=== PATIENT | male | born 1980 | race Hispanic/Latino ===

== ENCOUNTER → 2019-02-22 | Outpatient (CLI) | payer OTHER | END | disposition home or self-care (01) | LOC: RAH 09:36 | PROVIDERS: ATTEND Internal Medicine | DX: R94.5 Abnormal results of liver function studies (principal); R73.01 Impaired fasting glucose | CPT/HCPCS: 76705 ==

== ENCOUNTER → 2019-09-20 | Outpatient (CLI) | payer OTHER ==
[2019-09-20 08:06] LABS: BILIRUBIN,TOTAL 0.6 mg/dL (0.2-1.0); POTASSIUM 3.8 mmol/L (3.5-5.1); TOTAL PROTEIN, SERUM 7.6 g/dL (6.0-8.3)
== END | disposition home or self-care (01) ==
LOC: LAB 07:23
PROVIDERS: ATTEND Internal Medicine
DX: E78.2 Mixed hyperlipidemia (principal); R73.01 Impaired fasting glucose
CPT/HCPCS: 36415; 80053; 80061

== ENCOUNTER → 2020-05-14 | Outpatient (CLI) | payer OTHER ==
[2020-05-14 14:12] LABS: ALBUMIN 4.2 g/dL (3.5-5.0); BILIRUBIN,TOTAL 0.4 mg/dL (0.2-1.0); CREATININE 0.9 mg/dL (0.5-1.5); POTASSIUM 3.9 mmol/L (3.5-5.1); TOTAL PROTEIN, SERUM 7.3 g/dL (6.0-8.3)
[2020-05-14 14:13] LABS: BASOPHILS % (AUTO) 0.5 % (0.0-5.0); EOSINOPHILS % (AUTO) 9.3 % (0.0-8.0); HEMATOCRIT 43.8 % (42-54); LYMPHOCYTES % (AUTO) 31.9 % (21.0-51.0); MEAN CORPUSCULAR HEMOGLOBIN 29.4 pg (27.0-33.0); MEAN CORPUSCULAR HGB CONC 33.3 g/dL (32.0-36.0); MEAN CORPUSCULAR VOLUME 88.3 fL (79-99); NEUTROPHILS % (AUTO) 52.1 % (40.0-77.0); PLATELET COUNT (AUTO) 194 K/uL (130-400); RED BLOOD CELL COUNT(AUTO) 4.96 MIL/uL (4.50-6.20); RED CELL DISTRIBUTION WIDTH 12.7 % (11.0-15.5); WHITE BLOOD COUNT (AUTO) 5.6 K/uL (4.8-10.8)
== END | disposition home or self-care (01) ==
LOC: LAB 14:05
PROVIDERS: ATTEND Internal Medicine
DX: K21.9 Gastro-esophageal reflux disease without esophagitis (principal); E78.2 Mixed hyperlipidemia; R94.5 Abnormal results of liver function studies
CPT/HCPCS: 36415; 80053; 80061; 85025; 87338

== ENCOUNTER → 2020-12-01 | Outpatient (CLI) | payer OTHER ==
[2020-12-01 08:53] LABS: BASOPHILS % (AUTO) 0.4 % (0.0-5.0); EOSINOPHILS % (AUTO) 6.3 % (0.0-8.0); LYMPHOCYTES % (AUTO) 31.5 % (21.0-51.0); MEAN CORPUSCULAR HEMOGLOBIN 29.3 pg (27.0-33.0); MEAN CORPUSCULAR HGB CONC 33.8 g/dL (32.0-36.0); MEAN CORPUSCULAR VOLUME 86.9 fL (79-99); MONOCYTES % (AUTO) 7.2 % (3.0-13.0); NEUTROPHILS % (AUTO) 54.4 % (40.0-77.0); PLATELET COUNT (AUTO) 203 K/uL (130-400); RED BLOOD CELL COUNT(AUTO) 5.18 MIL/uL (4.50-6.20); RED CELL DISTRIBUTION WIDTH 12.4 % (11.0-15.5); WHITE BLOOD COUNT (AUTO) 5.4 K/uL (4.8-10.8)
[2020-12-01 08:54] LABS: ALBUMIN 4.1 g/dL (3.5-5.0); BILIRUBIN,TOTAL 0.4 mg/dL (0.2-1.0); CREATININE 1.1 mg/dL (0.5-1.5); POTASSIUM 3.7 mmol/L (3.5-5.1); TOTAL PROTEIN, SERUM 7.5 g/dL (6.0-8.3)
== END | disposition home or self-care (01) ==
LOC: LAB 07:50
PROVIDERS: ATTEND Internal Medicine
DX: R94.5 Abnormal results of liver function studies (principal); E88.81 Metabolic syndrome and other insulin resistance; E78.2 Mixed hyperlipidemia
CPT/HCPCS: 36415; 80053; 80061; 85025; 87338

== ENCOUNTER → 2021-06-25 | Outpatient (CLI) | payer OTHER ==
[2021-06-25 13:25] LABS: ALBUMIN 4.1 g/dL (3.5-5.0); BILIRUBIN,TOTAL 0.5 mg/dL (0.2-1.0); CREATININE 1.1 mg/dL (0.5-1.5); POTASSIUM 4.1 mmol/L (3.5-5.1); TOTAL PROTEIN, SERUM 7.6 g/dL (6.0-8.3)
[2021-06-25 13:27] LABS: HEMOGLOBIN A1C 5.5 % (4.0-6.0)
[2021-06-25 13:28] LABS: BASOPHILS % (AUTO) 0.4 % (0.0-5.0); EOSINOPHILS % (AUTO) 3.6 % (0.0-8.0); HEMATOCRIT 44.3 % (42-54); LYMPHOCYTES % (AUTO) 33.4 % (21.0-51.0); MEAN CORPUSCULAR HEMOGLOBIN 29.7 pg (27.0-33.0); MEAN CORPUSCULAR HGB CONC 34.1 g/dL (32.0-36.0); MONOCYTES % (AUTO) 7.9 % (3.0-13.0); NEUTROPHILS % (AUTO) 54.5 % (40.0-77.0); PLATELET COUNT (AUTO) 201 K/uL (130-400); RED BLOOD CELL COUNT(AUTO) 5.09 MIL/uL (4.50-6.20); RED CELL DISTRIBUTION WIDTH 12.4 % (11.0-15.5); WHITE BLOOD COUNT (AUTO) 4.9 K/uL (4.8-10.8)
== END | disposition home or self-care (01) ==
LOC: LAB 13:02
PROVIDERS: ATTEND Internal Medicine
DX: E88.81 Metabolic syndrome and other insulin resistance (principal); E78.2 Mixed hyperlipidemia; Z00.00 Encounter for general adult medical examination without abnormal findings
CPT/HCPCS: 36415; 80053; 80061; 83036; 85025

== ENCOUNTER → 2022-07-21 | Outpatient (CLI) | payer OTHER ==
[2022-07-21 08:52] LABS: BASOPHILS % (AUTO) 0.4 % (0.0-5.0); HEMATOCRIT 46.3 % (42-54); LYMPHOCYTES % (AUTO) 34.6 % (21.0-51.0); MEAN CORPUSCULAR HEMOGLOBIN 29.4 pg (27.0-33.0); MEAN CORPUSCULAR HGB CONC 34.6 g/dL (32.0-36.0); MONOCYTES % (AUTO) 6.4 % (3.0-13.0); NEUTROPHILS % (AUTO) 53.4 % (40.0-77.0); PLATELET COUNT (AUTO) 208 K/uL (130-400); RED BLOOD CELL COUNT(AUTO) 5.45 MIL/uL (4.50-6.20); RED CELL DISTRIBUTION WIDTH 12.8 % (11.0-15.5); WHITE BLOOD COUNT (AUTO) 5.6 K/uL (4.8-10.8)
[2022-07-21 08:55] LABS: ALBUMIN 4.2 g/dL (3.5-5.0); CREATININE 1.1 mg/dL (0.5-1.5); HEMOGLOBIN A1C 5.8 % (4.0-6.0); POTASSIUM 3.8 mmol/L (3.5-5.1); TOTAL PROTEIN, SERUM 7.8 g/dL (6.0-8.3)
== END | disposition home or self-care (01) ==
LOC: LAB 08:09
PROVIDERS: ATTEND Internal Medicine
DX: R94.5 Abnormal results of liver function studies (principal); R53.83 Other fatigue; E78.2 Mixed hyperlipidemia
CPT/HCPCS: 36415; 80053; 80061; 82306; 83036; 85025

== ENCOUNTER → 2023-02-08 | Outpatient (CLI) | payer OTHER ==
[2023-02-08 09:02] LABS: BASOPHILS % (AUTO) 0.5 % (0.0-5.0); HEMATOCRIT 45.1 % (42-54); LYMPHOCYTES % (AUTO) 32.6 % (21.0-51.0); MEAN CORPUSCULAR HEMOGLOBIN 29.5 pg (27.0-33.0); MEAN CORPUSCULAR HGB CONC 34.6 g/dL (32.0-36.0); MEAN CORPUSCULAR VOLUME 85.4 fL (79-99); MONOCYTES % (AUTO) 7.4 % (3.0-13.0); NEUTROPHILS % (AUTO) 54.3 % (40.0-77.0); PLATELET COUNT (AUTO) 188 K/uL (130-400); RED BLOOD CELL COUNT(AUTO) 5.28 MIL/uL (4.50-6.20); RED CELL DISTRIBUTION WIDTH 12.6 % (11.0-15.5); WHITE BLOOD COUNT (AUTO) 5.8 K/uL (4.8-10.8)
[2023-02-08 09:04] LABS: ALBUMIN 4.2 g/dL (3.5-5.0); CREATININE 1.2 mg/dL (0.5-1.5); POTASSIUM 4.1 mmol/L (3.5-5.1); TOTAL PROTEIN, SERUM 7.4 g/dL (6.0-8.3)
[2023-02-08 09:05] LABS: HEMOGLOBIN A1C 5.6 % (4.0-6.0)
== END | disposition home or self-care (01) ==
LOC: LAB 08:37
PROVIDERS: ATTEND Internal Medicine
DX: K21.9 Gastro-esophageal reflux disease without esophagitis (principal); E78.2 Mixed hyperlipidemia; R73.01 Impaired fasting glucose
CPT/HCPCS: 36415; 80053; 80061; 82043; 83036; 85025

== ENCOUNTER → 2023-04-20 | Outpatient (CLI) | payer OTHER ==
[2023-04-20 09:01] LABS: ALBUMIN 4.3 g/dL (3.5-5.0); CREATININE 1.1 mg/dL (0.5-1.5); POTASSIUM 3.9 mmol/L (3.5-5.1); TOTAL PROTEIN, SERUM 7.6 g/dL (6.0-8.3)
[2023-04-20 09:02] LABS: BASOPHILS % (AUTO) 0.8 % (0.0-5.0); EOSINOPHILS % (AUTO) 3.9 % (0.0-8.0); HEMATOCRIT 43.4 % (42-54); LYMPHOCYTES % (AUTO) 36.4 % (21.0-51.0); MEAN CORPUSCULAR HEMOGLOBIN 29.3 pg (27.0-33.0); MEAN CORPUSCULAR HGB CONC 33.6 g/dL (32.0-36.0); MEAN CORPUSCULAR VOLUME 87.1 fL (79-99); MONOCYTES % (AUTO) 6.7 % (3.0-13.0); PLATELET COUNT (AUTO) 185 K/uL (130-400); RED BLOOD CELL COUNT(AUTO) 4.98 MIL/uL (4.50-6.20); RED CELL DISTRIBUTION WIDTH 12.5 % (11.0-15.5); WHITE BLOOD COUNT (AUTO) 5.1 K/uL (4.8-10.8)
[2023-04-20 09:03] LABS: HEMOGLOBIN A1C 5.5 % (4.0-6.0)
[2023-04-20 09:27] LABS: THYROID STIMULATING HORMONE 2.95 uIU/mL (0.36-3.74)
== END | disposition home or self-care (01) ==
LOC: LAB 08:30
PROVIDERS: ATTEND Internal Medicine
DX: Z13.220 Encounter for screening for lipoid disorders (principal); Z13.1 Encounter for screening for diabetes mellitus; Z13.29 Encounter for screening for other suspected endocrine disorder
CPT/HCPCS: 36415; 80053; 80061; 83036; 84439; 84443; 85025

== ENCOUNTER 2023-05-19 09:47 | Day surgery (SDC) | payer OTHER ==
[2023-05-18 12:09] VITALS: BP 108/60
[~2023-05-19] VITALS: Ht 165.1 cm; Wt 73.8 kg
[~2023-05-19 09:47] MED LIST: ROSU10TA28 PO
[2023-05-19 10:00] VITALS: BP 115/75
[2023-05-19] MEDS ORDERED: PROPOFOL 10 MG/ML 20ML VIAL IV ONE ×2 (13:43→14:29)
== END 2023-05-19 15:25 | disposition home or self-care (01) ==
LOC: ENDO 09:47 → DAH 09:47 → ENDO 15:25
PROVIDERS: ATTEND Internal Medicine Gastroenterology
DX: K62.5 Hemorrhage of anus and rectum (principal); D12.2 Benign neoplasm of ascending colon; K29.50 Unspecified chronic gastritis without bleeding; K31.89 Other diseases of stomach and duodenum; K64.8 Other hemorrhoids; K20.80 Other esophagitis without bleeding; E78.2 Mixed hyperlipidemia; Z79.899 Other long term (current) drug therapy; Z72.89 Other problems related to lifestyle; Z20.822 Contact with and (suspected) exposure to COVID-19
CPT/HCPCS: 87426; 43239; 45385; J2704 ×2; A4620; A4215 ×2; A4223; A4657 ×2; A7002; A4222; A4221; A4663; J7030; A4606

== ENCOUNTER → 2023-09-02 | Outpatient (CLI) | payer OTHER ==
[2023-09-02 08:57] LABS: CHOLESTEROL 214 mg/dL (<200); HDL CHOLESTEROL 55 mg/dL (29-71); LDL DIRECT 129 mg/dL (0-99); TRIGLYCERIDES 147 mg/dL (30-200)
== END | disposition home or self-care (01) ==
LOC: LAB 08:23
PROVIDERS: ATTEND Internal Medicine
DX: E78.2 Mixed hyperlipidemia (principal)
CPT/HCPCS: 36415; 80061

== ENCOUNTER → 2024-09-03 | Outpatient (CLI) | payer OTHER ==
[~2024-09-03] MED LIST changes: -ROSU10TA28 PO; +ROSU10TA72 PO
[2024-09-03 10:28] LABS: ALBUMIN 3.8 g/dL (3.5-5.0); BILIRUBIN,TOTAL 0.4 mg/dL (0.2-1.0); POTASSIUM 4.1 mmol/L (3.5-5.1); THYROID STIMULATING HORMONE 2.31 uIU/mL (0.36-3.74); TOTAL PROTEIN, SERUM 7.2 g/dL (6.0-8.3)
[2024-09-03 10:29] LABS: BASOPHILS # (AUTO) 0.03 K/uL (0.00-0.20); BASOPHILS % (AUTO) 0.6 % (0.0-5.0); EOSINOPHILS # (AUTO) 0.37 K/uL (0.00-0.70); EOSINOPHILS % (AUTO) 7.7 % (0.0-8.0); HEMATOCRIT 43.6 % (42-54); HEMOGLOBIN A1C 5.6 % (4.0-6.0); IMMATURE GRANULOCYTE ABSOLUTE 0.02 K/uL (0-1); LYMPHOCYTES # (AUTO) 1.7 K/uL (1.0-4.8); LYMPHOCYTES % (AUTO) 35.6 % (21.0-51.0); MEAN CORPUSCULAR HGB CONC 33.9 g/dL (32.0-36.0); MEAN CORPUSCULAR VOLUME 88.3 fL (79-99); MONOCYTES # (AUTO) 0.3 K/uL (0.1-1.0); NEUTROPHILS # (AUTO) 2.4 K/uL (1.8-7.7); NEUTROPHILS % (AUTO) 49.7 % (40.0-77.0); PLATELET COUNT (AUTO) 202 K/uL (130-400); RED BLOOD CELL COUNT(AUTO) 4.94 MIL/uL (4.50-6.20); RED CELL DISTRIBUTION WIDTH 12.5 % (11.0-15.5); WHITE BLOOD COUNT (AUTO) 4.8 K/uL (4.8-10.8)
== END | disposition home or self-care (01) ==
LOC: LAB 09:20
PROVIDERS: ATTEND Internal Medicine
DX: Z13.29 Encounter for screening for other suspected endocrine disorder (principal); F41.1 Generalized anxiety disorder; R53.83 Other fatigue; R73.01 Impaired fasting glucose; E78.2 Mixed hyperlipidemia; I10 Essential (primary) hypertension; E03.9 Hypothyroidism, unspecified; Z00.00 Encounter for general adult medical examination without abnormal findings; K76.0 Fatty (change of) liver, not elsewhere classified
CPT/HCPCS: 36415; 80053; 80061; 82043; 82570; 83036; 84443; 85025

== ENCOUNTER → 2025-09-12 | Outpatient (CLI) | payer OTHER ==
[~2025-09-12] MED LIST changes: -ROSU10TA72 PO; +ROSU10TA98 PO
[2025-09-12 08:27] LABS: ASPARTATE AMINOTRANSFERASE 31.0 U/L (10-37); CREATININE 0.9 mg/dL (0.5-1.3); GLOMERULAR FILTR. RATE CALC 107.0 mL/min (>90); GLUCOSE,RANDOM 111.0 mg/dL (70-105); LDL DIRECT 142.0 mg/dL (0-99); SODIUM SERUM 143.0 mmol/L (136-145); TOTAL PROTEIN, SERUM 7.3 g/dL (6.0-8.3); UREA NITROGEN, BLOOD 16.0 mg/dL (7-18)
[2025-09-12 08:30] LABS: IMMATURE GRANULOCYTE ABSOLUTE 0.01 K/uL (0-1); NUCLEATED RED BLOOD CELLS 0.0 % (0.0-0.19); PLATELET COUNT (AUTO) 196 K/uL (130-400); RED BLOOD CELL COUNT(AUTO) 4.95 MIL/uL (4.50-6.20); RED CELL DISTRIBUTION WIDTH 12.8 % (11.0-15.5); WHITE BLOOD COUNT (AUTO) 5.4 K/uL (4.8-10.8)
== END | disposition home or self-care (01) ==
LOC: LAB 08:07
PROVIDERS: ATTEND Internal Medicine
DX: E78.2 Mixed hyperlipidemia (principal); E88.810 Metabolic syndrome; R53.83 Other fatigue
CPT/HCPCS: 36415; 80053; 80061; 82043; 82570; 83036; 84443; 85025